=== PATIENT | male | born 1990 | race Two or more races ===

== ENCOUNTER 2024-11-04 00:18 | Emergency (ER) | payer OTHER ==
[~2024-11-04] VITALS: Ht 177.8 cm; Wt 63.5 kg
[2024-11-04] MEDS ORDERED: MORPHINE SULFATE INJ 4 MG/ML DISP.SYRIN ONE ×3 (00:40→12:24)
[2024-11-04] MEDS ORDERED: KETOROLAC TROMETHAMINE 15 MG/ML VIAL ONE (00:40)
[2024-11-04] MEDS ORDERED: CYCLOBENZAPRINE 10 MG TABLET ONE ×2 (00:41→07:16)
[2024-11-04 00:47] LABS: BASOPHILS # (AUTO) 0.1 K/uL (0.0-0.2); BASOPHILS % (AUTO) 0.6 % (0.0-2.0); EOSINOPHILS % (AUTO) 0.2 % (0.0-6.0); HEMATOCRIT 32 % (39-51); HEMOGLOBIN 10.5 g/dL (13.5-17.5); LYMPHOCYTES % (AUTO) 7.3 % (20.0-44.0); MEAN CORPUSCULAR HEMOGLOBIN 30 PG (26.0-33.0); MEAN CORPUSCULAR HGB CONC 33 g/dl (31.0-36.0); MEAN CORPUSCULAR VOLUME 89 fL (80-96); MONOCYTES # (AUTO) 1.5 K/uL (0.1-1.30); MONOCYTES % (AUTO) 11.8 % (2.0-12.0); NEUTROPHILS # (AUTO) 10.4 K/uL (1.8-8.9); NEUTROPHILS % (AUTO) 80.1 % (43.0-81.0); PLATELET COUNT (AUTO) 562 K/uL (150-450); RED BLOOD CELL COUNT(AUTO) 3.57 MIL/uL (4.5-6.0)
[2024-11-04] MEDS: CYCLOBENZAPRINE 10 MG TABLET PO ONE ×2 (00:52→07:18)
[2024-11-04 00:53] LABS: CALCIUM, SERUM 9.7 mg/dL (8.5-10.1); CREATININE 0.9 mg/dL (0.6-1.3); POTASSIUM 3.5 mmol/L (3.5-5.1)
[2024-11-04 00:58] LABS: ALBUMIN 2.6 g/dL (3.4-5.0); BILIRUBIN,TOTAL 0.4 mg/dL (0.2-1.0); TOTAL PROTEIN, SERUM 7.3 g/dL (6.4-8.2)
[2024-11-04] MEDS: KETOROLAC TROMETHAMINE 15 MG/ML VIAL IV ONE (00:58)
[2024-11-04] MEDS: MORPHINE SULFATE INJ 2 MG/ML DISP.SYRIN IV ONE ×3 (00:58→12:31)
[2024-11-04] MEDS ORDERED: IOHEXOL-300 100 ML VIAL IV ONE (00:58)
[2024-11-04] MEDS ORDERED: IV NS 0.9% 250 ML IV ONE (00:58)
[2024-11-04] MEDS: VANCOMYCIN 1 GM in IV D5W 250 ML IV ONE (01:00)
[2024-11-04] MEDS ORDERED: PIPERACI/TAZO 3.375GM/D5W 50ML PB IV ONE (01:27)
[2024-11-04] MEDS: IV NS 0.9% 1,000 ML BAG IV ONE (01:31)
[2024-11-04] MEDS: PIPERACILLIN /TAZOBACTAM 3.375 G in IV D5W 50 ML IV ONE (01:41)
[2024-11-04] MEDS ORDERED: VANCOMYCIN 1 GM /D5W 250 ML PB IV ONE (02:07)
[2024-11-04 03:30] LABS: APPEARANCE,URINE CLEAR (CLEAR); BILIRUBIN,URINE NEGATIVE (NEGATIVE); BLOOD, URINE NEGATIVE Ery/uL (NEGATIVE); COLOR,URINE YELLOW (YELLOW); KETONES,URINE NEGATIVE (NEGATIVE); LEUKOCYTE ESTERASE ,URINE NEGATIVE (NEGATIVE); NITRITE, URINE NEGATIVE (NEGATIVE); PROTEIN,URINE NEGATIVE (NEGATIVE); UGLUCOSE NEGATIVE (NEGATIVE); UROBILINOGEN,URINE 0.2 EU/dL (0.2)
[2024-11-04 12:15] VITALS: BP 152/60; TEMP 97.7; O2SAT 98
== END 2024-11-04 12:52 | disposition short-term general hospital (02) ==
LOC: ER 00:23
DX: M54.50 Low back pain, unspecified (principal); G89.29 Other chronic pain; M41.9 Scoliosis, unspecified; Z98.890 Other specified postprocedural states; Z60.2 Problems related to living alone
CPT/HCPCS: 99285; 72132; 96365; 96375; 96367; 96366; 85025; 87040 ×2; 87086; 83605; 81003; 36415; 80053; 96376; J1885; J2270 ×3; J3370 ×2; J2543 ×2; J7060; J7030; J7050; Q9967

== ENCOUNTER 2025-01-23 20:54 | Emergency (ER) | payer MEDICAID, OTHER ==
[~2025-01-23] VITALS: Ht 172.7 cm; Wt 63.5 kg
[2025-01-23 23:54] LABS: PLATELET COUNT (AUTO) 426 K/uL (150-450); RED BLOOD CELL COUNT(AUTO) 4.60 MIL/uL (4.5-6.0); RED CELL DISTRIBUTION WIDTH 16.8 % (11.5-15.0); WHITE BLOOD COUNT (AUTO) 8.0 K/uL (4.3-11.0)
[2025-01-24 00:08] LABS: ASPARTATE AMINOTRANSFERASE 17 U/L (15-37); CALCIUM, SERUM 9.7 mg/dL (8.5-10.1); CREATININE 0.8 mg/dL (0.6-1.3); SODIUM SERUM 139 mmol/L (136-145); TOTAL PROTEIN, SERUM 7.7 g/dL (6.4-8.2); UREA NITROGEN, BLOOD 17 mg/dL (7-18)
[2025-01-24 00:15] LABS: ALCOHOL, BLOOD < 3 mg/dL (0-10)
[2025-01-24 01:25] VITALS: BP 108/66; TEMP 98.2; O2SAT 98
[2025-01-24 02:30] LABS: APPEARANCE,URINE CLEAR (CLEAR); BLOOD, URINE NEGATIVE Ery/uL (NEGATIVE); LEUKOCYTE ESTERASE ,URINE NEGATIVE (NEGATIVE); NITRITE, URINE NEGATIVE (NEGATIVE); UGLUCOSE NEGATIVE (NEGATIVE)
[2025-01-24 02:40] LABS: ADD URINE CULTURE NO; SQUAMOUS EPITHELIAL CELL,UR None Seen /HPF (None Seen)
[2025-01-24 02:42] LABS: AMPHETAMINE, URINE NEGATIVE (NEGATIVE); BARBITURATE, URINE NEGATIVE (NEGATIVE); COCCAINE, URINE NEGATIVE (NEGATIVE); OPIATE, URINE NEGATIVE (NEGATIVE)
[2025-01-24 02:45] LABS: BENZODIAZEPINE, URINE POSITIVE (NEGATIVE); CANNABINOID, URINE POSITIVE (NEGATIVE)
== END 2025-01-24 04:00 ==
LOC: ER 20:58
DX: F32.A Depression, unspecified (principal); Z79.899 Other long term (current) drug therapy; Z20.822 Contact with and (suspected) exposure to COVID-19
CPT/HCPCS: 36415; 80048-TC; 80076-TC; 81001; 85025-TC; G0480

== ENCOUNTER 2025-02-20 01:08 | Emergency (ER) | payer BC, OTHER ==
[~2025-02-20] VITALS: Ht 172.7 cm; Wt 63.5 kg
[2025-02-20 01:54] LABS: PLATELET COUNT (AUTO) 603 K/uL (150-450); RED BLOOD CELL COUNT(AUTO) 4.45 MIL/uL (4.5-6.0); RED CELL DISTRIBUTION WIDTH 17.8 % (11.5-15.0); WHITE BLOOD COUNT (AUTO) 18.8 K/uL (4.3-11.0)
[2025-02-20 01:56] LABS: APPEARANCE,URINE CLEAR (CLEAR); BLOOD, URINE NEGATIVE Ery/uL (NEGATIVE); LEUKOCYTE ESTERASE ,URINE NEGATIVE (NEGATIVE); NITRITE, URINE NEGATIVE (NEGATIVE); UGLUCOSE NEGATIVE (NEGATIVE)
[2025-02-20 02:06] LABS: CALCIUM, SERUM 9.1 mg/dL (8.5-10.1); CREATININE 1.0 mg/dL (0.6-1.3); SODIUM SERUM 140 mmol/L (136-145); UREA NITROGEN, BLOOD 22 mg/dL (7-18)
[2025-02-20 02:09] LABS: ASPARTATE AMINOTRANSFERASE 55 U/L (15-37); TOTAL PROTEIN, SERUM 7.2 g/dL (6.4-8.2)
[2025-02-20 02:10] LABS: AMPHETAMINE, URINE NEGATIVE (NEGATIVE); BARBITURATE, URINE NEGATIVE (NEGATIVE); BENZODIAZEPINE, URINE NEGATIVE (NEGATIVE); CANNABINOID, URINE NEGATIVE (NEGATIVE); COCCAINE, URINE NEGATIVE (NEGATIVE); OPIATE, URINE NEGATIVE (NEGATIVE)
[2025-02-20 02:13] LABS: ALCOHOL, BLOOD < 3 mg/dL (0-10)
[2025-02-20] MEDS ORDERED: AMOX-430 PO (05:53)
[2025-02-20] MEDS ORDERED: IBUP-1490 PO (05:53)
[2025-02-20] MEDS ORDERED: AMOX/CLAVULANATE 875 MG TABLET ONE (05:59)
[2025-02-20] MEDS: AMOX/CLAVULANATE 875 MG TABLET PO ONE (06:00)
[2025-02-20 06:14] LABS: PLATELET COUNT (AUTO) 605 K/uL (150-450); RED BLOOD CELL COUNT(AUTO) 4.27 MIL/uL (4.5-6.0); RED CELL DISTRIBUTION WIDTH 17.8 % (11.5-15.0); WHITE BLOOD COUNT (AUTO) 18.3 K/uL (4.3-11.0)
[2025-02-20 11:00] VITALS: BP 123/75; TEMP 98.9; O2SAT 99
== END 2025-02-20 11:01 ==
LOC: ER 01:10
DX: F32.A Depression, unspecified (principal); J18.9 Pneumonia, unspecified organism; Z20.822 Contact with and (suspected) exposure to COVID-19; Z79.899 Other long term (current) drug therapy
CPT/HCPCS: 36415; 71045-TC; 80048-TC; 80076-TC; 85025-TC; G0480